=== PATIENT | male | born 1950 | race Caucasian/White ===

== ENCOUNTER 2019-03-23 02:50 | Emergency (ER) | payer MEDICARE, OTHER ==
[2019-03-23] MEDS: Sodium Chloride 0.9% 1,000 ML IV ONE (03:22)
[2019-03-23] MEDS: Ondansetron 4 MG/2 ML SDV IVPUSH ONE (03:23)
[2019-03-23] MEDS: Ketorolac 30 MG/ML SDV IVPUSH ONE (03:26)
--- NOTE | 2019-03-23 03:41 | EDM.PDOC ---
ED HPI GENERAL MEDICAL PROBLEM - General Chief Complaint: Abdominal Pain Stated Complaint: RUQ Pain Time Seen by Provider: 03/23/19 03:23 Source of Information: Reports: Patient History Limitations: Reports: No Limitations - History of Present Illness INITIAL COMMENTS - FREE TEXT/NARRATIVE: Patient is a 69-year-old gentleman who presents to the emergency Department this morning with a complaint of right upper quadrant pain. Patient states approximately 9 p.m. last evening, he developed a squeezing a sharp sensation in his right upper abdomen. Shortly after he had one episode of vomiting. The patient states that it's been intermittent. It will lessen then become more intense. Patient does not have any history of any abdominal surgery. Patient denies fever, out of country travel, chest pain, shortness of breath, any trauma , diarrhea, blood in stool or vomitus. Onset: Sudden Onset Date: 03/22/19 Onset Time: 21:00 Duration: Hour(s): Location: Reports: Abdomen Quality: Reports: Sharp Severity: Moderate Improves with: Reports: None Worsens with: Reports: None Context: Denies: Trauma Associated Symptoms: Reports: Nausea/Vomiting. Denies: Chest Pain, Fever/Chills , Shortness of Breath - Related Data Allergies Allergy/AdvReac Type Severity Reaction Status Date / Time Penicillins Allergy Hives Verified 03/23/19 03:56 Home Meds: Home Meds amLODIPine [Norvasc] 5 mg PO DAILY 03/23/19 [History] ED ROS GENERAL - Review of Systems Review Of Systems: ROS reveals no pertinent complaints other than HPI. Constitutional: Reports: No Symptoms HEENT: Reports: No Symptoms Respiratory: Reports: No Symptoms Cardiovascular: Reports: No Symptoms Endocrine: Reports: No Symptoms GI/Abdominal: Reports: Abdominal Pain, Nausea, Vomiting : Reports: No Symptoms Musculoskeletal: Reports: No Symptoms Skin: Reports: No Symptoms Neurological: Reports: No Symptoms Psychiatric: Reports: No Symptoms Hematologic/Lymphatic: Reports: No Symptoms Immunologic: Reports: No Symptoms ED EXAM, GI/ABD - Physical Exam Exam: See Below Exam Limited By: No Limitations General Appearance: Alert, WD/WN, Mild Distress Nose: Normal Inspection, Normal Mucosa, No Blood Throat/Mouth: Normal Inspection, Normal Oropharynx, No Airway Compromise Head: Atraumatic, Normocephalic Neck: Normal Inspection Respiratory/Chest: No Respiratory Distress, Lungs Clear, Normal Breath Sounds, No Accessory Muscle Use, Chest Non-Tender Cardiovascular: Regular Rate, Rhythm, No Murmur GI/Abdominal Exam: Normal Bowel Sounds, No Organomegaly, No Distention, No Abnormal Bruit, No Mass, Tender (Right Upper quadrant) (Male) Exam: No Hernia, Normal Inspection Back Exam: Normal Inspection. No: CVA Tenderness (L), CVA Tenderness (R) Extremities: Normal Inspection, No Pedal Edema Neurological: Alert, Oriented, Normal Cognition Psychiatric: Normal Affect, Normal Mood Skin Exam: Warm, Dry, Intact, Normal Color, No Rash Lymphatic: No Adenopathy Course - Vital Signs Last Recorded V/S: Last Vital Signs Temp 97.2 F 03/23/19 03:00 Pulse 88 03/23/19 03:00 Resp 20 03/23/19 03:00 BP 158/84 H 03/23/19 03:00 Pulse Ox 98 03/23/19 03:00 - Orders/Labs/Meds Orders: Active Orders 24 hr Category Date Time Status Abdomen Pelvis w Cont [CT] Stat Exams 03/23/19 03:25 Taken Sodium Chloride 0.9% [Normal Saline] 50 ml Med 03/23/19 03:45 Active IV ASDIRECTED Medication Orders Sodium Chloride (Normal Saline) 50 mls @ 200 mls/min IV ASDIRECTED LUANN Last Admin: 03/23/19 04:47 Dose: 200 mls/min Labs: Laboratory Tests 03/23/19 03/23/19 Range/Units 03:10 03:10 WBC 10.59 H (5.00-10.00) 10^3/uL RBC 4.82 (4.50-6.00) 10^6/uL Hgb 15.8 (13.0-17.0) g/dL Hct 45.1 (40.0-52.0) % MCV 93.6 H (82.0-92.0) fL MCH 32.8 H (27.0-31.0) pg MCHC 35.0 (32.0-36.0) g/dL RDW 13.0 (11.5-14.5) % Plt Count 215 (150-400) 10^3/uL MPV 10.1 (7.4-10.4) fL Immature Gran % (Auto) 0.2 (0.0-5.0) % Neut % (Auto) 82.9 H (50.0-70.0) % Lymph % (Auto) 12.1 L (20.0-40.0) % [place] % (Auto) 3.8 (2.0-8.0) % Eos % (Auto) 0.4 L (1.0-3.0) % Baso % (Auto) 0.6 (0.0-1.0) % Immature Gran # (Auto) 0.02 (0.00-0.50) 10^3/uL Neut # (Auto) 8.79 H (2.50-7.00) 10^3/uL Lymph # (Auto) 1.28 (1.00-4.00) 10^3/uL [place] # (Auto) 0.40 (0.10-0.80) 10^3/uL Eos # (Auto) 0.04 L (0.10-0.30) 10^3/uL Baso # (Auto) 0.06 (0.00-0.10) 10^3/uL Sodium 138 (136-145) mmol/L Potassium 4.2 (3.3-5.3) mmol/L Chloride 100 (98-115) mmol/L Carbon Dioxide 25.0 (21.0-32.0) mmol/L Anion Gap 17.2 H (5-15) mmol/L BUN 19 (6-25) mg/dL Creatinine 0.94 (0.51-1.17) mg/dL Est Cr Clr Drug Dosing 76.77 mL/min Estimated GFR (MDRD) > 60 mL/min Glucose 142 H (75 - 99) mg/dL Calcium 9.6 (8.7-10.3) mg/dL Total Bilirubin 0.4 (0.2-1.0) mg/dL AST 18 (15-37) U/L ALT 21 (12-78) U/L Alkaline Phosphatase 39 L (46-116) IU/L Total Protein 7.8 (6.4-8.2) g/dL Albumin 3.87 (3.00-4.80) g/dL Lipase 112 (73-393) U/L Meds: Medications Generic Name Dose Route Start Last Admin Trade Name Freq PRN Reason Stop Dose Admin Sodium Chloride 50 mls @ 200 mls/min 03/23/19 03:45 03/23/19 04:47 Normal Saline IV 200 mls/min ASDIRECTED LUANN Administration Discontinued Medications Generic Name Dose Route Start Last Admin Trade Name Chuckie PRN Reason Stop Dose Admin Famotidine 20 mg 03/23/19 03:25 03/23/19 03:52 Pepcid IVPUSH 03/23/19 03:26 20 mg ONETIME ONE Administration Sodium Chloride 1,000 mls @ 999 mls/hr 03/23/19 03:25 03/23/19 03:22 Normal Saline IV 03/23/19 04:25 999 mls/hr .BOLUS ONE Administration Sodium Chloride Confirm 03/23/19 03:27 03/23/19 03:42 Normal Saline Administered 03/23/19 03:28 Not Given Dose 1,000 mls @ as directed .ROUTE .STK-MED ONE Iopamidol 100 ml 03/23/19 03:33 03/23/19 04:47 Isovue-370 (76%) IV 03/23/19 03:34 75 ml ONETIME ONE Administration Ketorolac Tromethamine 30 mg 03/23/19 03:25 03/23/19 03:26 Toradol IVPUSH 03/23/19 03:26 30 mg ONETIME ONE Administration Ondansetron HCl 4 mg 03/23/19 03:25 03/23/19 03:23 Zofran IVPUSH 03/23/19 03:26 4 mg ONETIME ONE Administration Ondansetron HCl Confirm 03/23/19 03:27 03/23/19 03:43 Zofran Administered 03/23/19 03:28 Not Given Dose 4 mg .ROUTE .STK-MED ONE - Radiology Interpretation Free Text/Narrative:: CT abdomen and pelvis shows mild changes of acute cholecystitis - Re-Assessments/Exams Free Text/Narrative Re-Assessment/Exam: 03/23/19 05:09 Patient afebrile, vital signs stable, pain resolved. Lab values are within normal limits. Patient will follow-up tomorrow at [facility] for GI follow- up referral. Departure - Departure Time of Disposition: 05:10 Disposition: Home, Self-Care 01 Condition: Good Clinical Impression: Cholecystitis - Discharge Information Instructions: Cholecystitis Referrals: Toñito Green GLASS CRUSHER [Nurse Practitioner] - Forms: ED Department Discharge Additional Instructions: Follow-up at [facility] today. Return to emergency department sooner if symptoms worsen. - My Orders Last 24 Hours: My Active Orders 03/23/19 03:25 Abdomen Pelvis w Cont [CT] Stat 03/23/19 03:45 Sodium Chloride 0.9% [Normal Saline] 50 ml IV ASDIRECTED - Assessment/Plan Last 24 Hours: My Active Orders 03/23/19 03:25 Abdomen Pelvis w Cont [CT] Stat 03/23/19 03:45 Sodium Chloride 0.9% [Normal Saline] 50 ml IV ASDIRECTED Assessment:: Cholecystitis Plan: Follow-up tomorrow at [facility]
[2019-03-23] MEDS: Sodium Chloride 0.9% 1,000 ML ONE (03:42)
[2019-03-23] MEDS: Ondansetron 4 MG/2 ML SDV ONE (03:43)
[2019-03-23] MEDS: Famotidine 20 MG/2 ML SDV IVPUSH ONE (03:52)
[2019-03-23 04:13] LABS: ANION GAP 17.2 mmol/L (5-15); CHLORIDE,CL 100 mmol/L (98-115); SODIUM,NA 138 mmol/L (136-145)
[2019-03-23] MEDS: Sodium Chloride 0.9% 50 ML IV SCH (04:47)
[2019-03-23] MEDS: Iopamidol 755 Mg/ML 100 ML Bottle IV ONE (04:47)
[2019-03-23] MEDS: Ondansetron 4 MG Tab.DIS PO ONE ×2 (05:15→05:42)
[2019-03-23] MEDS: Acetaminophen/HYDROcodone 325-5 MG Tab PO ONE (05:41)
[2019-03-23] MEDS: Acetaminophen/HYDROcodone 325-5 MG Tab ONE (05:41)
[2019-03-23] MEDS: Ondansetron 4 MG Tab.DIS ONE (05:42)
--- NOTE | 2019-03-23 07:51 | CT ---
[id number] CT/CT Abdomen Pelvis W IV EXAM: CT Abdomen Pelvis W IV CLINICAL DATA: RIGHT UPPER QUADRANT PAIN COMPARISON: NO PREVIOUS SIMILAR EXAM IS AVAILABLE. FINDINGS: There is cholecystolithiasis The gallbladder is moderately distended The appendix is normal There is uncomplicated colonic diverticular disease. The liver and spleen, adrenals, aorta, and pancreas are unremarkable. 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
== END 2019-03-23 05:20 | disposition home or self-care (01) ==
LOC: KA.ED 02:50
DX: K81.9 Cholecystitis, unspecified (principal); Z88.0 Allergy status to penicillin; Z79.899 Other long term (current) drug therapy
CPT/HCPCS: 36415; 74177; 80053; 83690; 85025; 96361; 96374; 96375; 99284; A9270; J1885; J2405; J3490; J7030; J7050; Q9967